=== PATIENT | female | born 1975 | race Caucasian/White ===

== ENCOUNTER 2021-05-06 09:18 | Emergency (ER) | payer OTHER ==
[~2021-05-06] VITALS: Ht 165.1 cm; Wt 65.3 kg
[2021-05-06] MEDS ORDERED: ULTRAM50 MG (09:31)
[2021-05-06] MEDS ORDERED: HORIZANT600 MG (09:31)
[2021-05-06] MEDS ORDERED: SINGULAIR 10MG10 MG (09:31)
[2021-05-06] MEDS ORDERED: PRILOSEC OTC20 MG (09:32)
== END 2021-05-06 11:23 | disposition home or self-care (01) ==
LOC: ER 09:18
DX: M54.9 Dorsalgia, unspecified (principal)